=== PATIENT | female | born 1985 | race Caucasian/White ===

== ENCOUNTER 2018-09-27 12:00 | Emergency (ER) | payer BC ==
[~2018-09-27] VITALS: Ht 160 cm; Wt 61.2 kg
[2018-09-27 12:04] VITALS: BP 107/67
--- NOTE | 2018-09-27 13:07 | NUR ---
PT AMBULATED TO BED 11.
--- NOTE | 2018-09-27 13:18 | NUR ---
PATIENT PRESENTS TO ED WITH c/o intermittent cramping type pain to abdomen >2 months---unsure what aggravates the pain but has worsen over the 2 months as per pt. denies recent injury/trauma last bm yesterday admits to straining--- .; SKIN IS PINK/WARM/DRY; AAOX4 WITH EVEN AND STEADY GAIT; LUNGS CLEAR BL; HR EVEN AND REGULAR; PT DENIES ANY FEVER, CP, SOB, OR COUGH AT THIS TIME; PATIENT STATES PAIN OF 9/10 AT THIS TIME; VSS; PATIENT POSITIONED FOR COMFORT; HOB ELEVATED; BEDRAILS UP X2; BED DOWN. ER MD MADE AWARE OF PT STATUS.
[2018-09-27] MEDS ORDERED: NACL 0.9% 1,000 ML IV ONE (13:58)
[2018-09-27 14:20] LABS: BASOPHILS % (AUTO) 0.6 % (0.0-2.0); EOSINOPHILS % (AUTO) 0.6 % (0.0-4.0); HEMOGLOBIN 11.9 g/dL (12.0-16.0); LYMPHOCYTES # (AUTO) 1.6 K/uL (2.5-16.5); LYMPHOCYTES % (AUTO) 28.6 % (20.5-51.1); MEAN CORPUSCULAR HEMOGLOBIN 29 pg (27-31); MEAN CORPUSCULAR HGB CONC 34 g/dL (33-37); MEAN CORPUSCULAR VOLUME 84.5 fL (80-94); MONOCYTES # (AUTO) 0.7 K/uL (0.8-1.0); MONOCYTES % (AUTO) 12.4 % (1.7-9.3); NEUTROPHILS # (AUTO) 3.3 K/uL (1.8-7.7); NEUTROPHILS % (AUTO) 57.8 % (42.2-75.2); PLATELET COUNT (AUTO) 257 K/uL (140-450); RED BLOOD CELL COUNT(AUTO) 4.14 MIL/uL (4.20-5.40); RED CELL DISTRIBUTION WIDTH 12.5 % (11.6-13.7); WHITE BLOOD COUNT (AUTO) 5.7 K/uL (4.8-10.8)
[2018-09-27 14:32] LABS: ANION GAP 8.5 (8-16); CARBON DIOXIDE 29.5 mmol/L (21-32); CREATININE 0.9 mg/dL (0.6-1.3)
[2018-09-27 14:38] LABS: ALBUMIN 3.3 g/dL (3.4-5.0); TOTAL BILIRUBIN 0.2 mg/dL (0.0-1.0)
--- NOTE | 2018-09-27 15:18 | NUR ---
pt remains in radiology
[2018-09-27 15:41] LABS: BILIRUBIN,URINE NEGATIVE (NEGATIVE); BLOOD, URINE TRACE-I (NEGATIVE); COLOR,URINE YELLOW (YELLOW); LEUKOCYTE ESTERASE ,URINE 1+ (NEGATIVE); NITRITE, URINE NEGATIVE (NEGATIVE); UGLUCOSE NEGATIVE (NEGATIVE)
[2018-09-27 15:42] LABS: APPEARANCE,URINE HAZY (CLEAR)
[2018-09-27 15:53] LABS: RBC,URINE 0-5 /HPF (0-5)
[2018-09-27 15:54] LABS: URIC ACID CRYSTALS,URINE 0-10 /HPF (None Seen)
--- NOTE | 2018-09-27 16:17 | NUR ---
IV FLUIDS INFUSING ORDERED.
[2018-09-27 18:05] VITALS: BP 100/65
--- NOTE | 2018-09-27 18:06 | NUR ---
Patient discharged with v/s stable. Written and verbal after care instructions given and explained. Patient alert, oriented and verbalized understanding of instructions. Ambulatory with steady gait. All questions addressed prior to discharge. Patient advised to follow up with PMD. Rx of Bentyl given. Patient educated on indication of medication including possible reaction and side effects. Opportunity to ask questions provided and answered.
--- NOTE | 2018-09-30 07:38 | NUR ---
Late entry. Confirmed with RN that 100ml/hr 0.9 NS IV infused until 1800.
== END 2018-09-27 18:00 | disposition home or self-care (01) ==
LOC: MED 12:00
DX: K58.9 Irritable bowel syndrome, unspecified (principal)
CPT/HCPCS: 36415; 74176; 76705; 76856; 80053; 81001; 81025; 82150; 82977; 83690; 84703; 85025; 87086; 99284; J7030; Q0092; 81002